=== PATIENT | male | born 1995 | race Asian ===

== ENCOUNTER 2017-02-11 17:02 | Emergency (ER) | payer BC ==
[~2017-02-11] VITALS: Ht 165.1 cm; Wt 64.0 kg
[2017-02-11 17:07] VITALS: BP 152/95
[2017-02-11 17:40] LABS: BASO # 0.1 x10^3/uL (0.0-0.2); BASO % 1 % (0-3); EOS % 2 % (0-3); HEMATOCRIT 47.2 % (39.0-53.0); HEMOGLOBIN 15.9 g/dL (13.0-17.5); LYMPH # 1.2 x10^3/uL (1.0-4.8); LYMPH % 12 % (24-48); MEAN CORPUSCULAR HEMOGLOBIN 30 pg (25-35); MEAN CORPUSCULAR HGB CONC 34 g/dL (31-37); MEAN CORPUSCULAR VOLUME 89 fL (79-100); MONO % 6 % (0-9); NEUT % 80 % (31-73); PLATELET COUNT 202 x10^3/uL (140-400); RED BLOOD COUNT 5.33 x10^6/uL (4.30-5.70); RED CELL DISTRIBUTION WIDTH 13.3 % (11.5-14.5); WHITE BLOOD COUNT 10.1 x10^3/uL (4.0-11.0)
[2017-02-11 17:43] LABS: BILIRUBIN,URINE NEGATIVE (NEG); GLUCOSE,URINE NEGATIVE (NEG); NITRITE,URINE NEGATIVE (NEG); PROTEIN,URINE NEGATIVE (NEG-TRACE); UROBILINOGEN,URINE 0.2 mg/dL (0.2 mg/dL)
[2017-02-11 17:47] LABS: BARBITURATES NEG (NEG); BENZODIAZEPINES NEG (NEG); CANNABINOIDS NEG (NEG); COCAINE NEG (NEG); METHADONE NEG (NEG); OPIATES NEG (NEG); PHENCYCLIDINE NEG (NEG)
--- NOTE | 2017-02-11 17:47 | PHYS DOC ---
Past Medical History Past Medical History: No Pertinent History Past Surgical History: No Surgical History Alcohol Use: None Additional Information: 'i used to drink a lot but i stopped' Drug Use: None Adult General Chief Complaint Chief Complaint: FEVER HPI HPI Patient is a 21 year old male who speaks [place] language who presents today with an hospital unit clerk, through the hospital unit clerk this states this patient has had a fever nonstop daily for the last 1 year. On inquiring how high the temperature was they state 8. At this point I tried to clarify 8 is not real temperature, I even asked is patient is warm, hospital unit clerk states may be. I asked if patient has been coughing or congestion, hospital unit clerk states no. Wardrobe Consultant states patient has also had dizziness for 1 year. He states this dizziness typically occurs in the morning when he gets up, hospital unit clerk states patient typically goes to bed ater work and then when he wakes up he feels his eyes are heavy and he is dizzy just for a few minutes. Patient himself states the dizziness occurs intermittently not all the time. Wardrobe Consultant is stating patient could and they want him evaluated. Wardrobe Consultant is requesting we do test to make sure patient doesn't . Wardrobe Consultant also state patient has had occasional headaches. They state they would like patient to be given medication for this headaches. Wardrobe Consultant is also stating patient has no primary care doctor has no follow-up. Wardrobe Consultant is doing most of the speaking leaning towards further testing. Patient's temperature is 97.8 in the ED. I clarified with him this is a normal temperature. They were very surprised, but they continued to insist patient must have further testing. Communication is quite difficult because the hospital unit clerk is doing a lot of talking for both parties. I doubt he is interpreting things the right away. Unfortunately the language this patient uses is almost impossible to find on the language line we have had trouble with this language before. Review of Systems Review of Systems Constitutional: fever Eyes: Denies change in visual acuity, redness, or eye pain [] HENT: Denies nasal congestion or sore throat [] Respiratory: Denies cough or shortness of breath [] Cardiovascular: No additional information not addressed in HPI [] GI: Denies abdominal pain, nausea, vomiting, bloody stools or diarrhea [] : Denies dysuria or hematuria [] Musculoskeletal: Denies back pain or joint pain [] Integument: Denies rash or skin lesions [] Neurologic: Headache and dizziness Endocrine: Denies polyuria or polydipsia [] Allergies Allergies Allergies Coded Allergies Type Severity Reaction Last Updated Verified No Known Drug Allergies 02/11/17 No Physical Exam Physical Exam Constitutional: Well developed, well nourished, no acute distress, non-toxic appearance. [] HENT: Normocephalic, atraumatic, bilateral external ears normal, oropharynx moist, no oral exudates, nose normal. [] Eyes: PERRLA, EOMI, conjunctiva normal, no discharge. [] Neck: Normal range of motion, no tenderness, supple, no stridor. [] Cardiovascular:Heart rate regular rhythm, no murmur [] Lungs & Thorax: Bilateral breath sounds clear to auscultation [] Abdomen: Bowel sounds normal, soft, no tenderness, no masses, no pulsatile masses. [] Skin: Warm, dry, no erythema, no rash. [] Back: No tenderness, no CVA tenderness. [] Extremities: No tenderness, no cyanosis, no clubbing, ROM intact, no edema. [] Neurologic: Alert and oriented X 3, normal motor function, normal sensory function, no focal deficits noted. cranial nerves II-XII intact Psychologic: Affect normal, judgement normal, mood normal. [] Current Patient Data Vital Signs Vital Signs Date Time Temp Pulse Resp B/P Pulse Ox O2 Delivery O2 Flow Rate FiO2 02/11/17 17:07 97.9 104 18 100 Room Air 97.9 Lab Values Laboratory Tests Test 02/11/17 17:32 02/11/17 17:33 White Blood Count 10.1x10^3/uL (4.0-11.0) Red Blood Count 5.33x10^6/uL (4.30-5.70) Hemoglobin 15.9g/dL (13.0-17.5) Hematocrit 47.2% (39.0-53.0) Mean Corpuscular Volume 89fL (79-100) Mean Corpuscular Hemoglobin 30pg (25-35) Mean Corpuscular Hemoglobin Concent 34g/dL (31-37) Red Cell Distribution Width 13.3% (11.5-14.5) Platelet Count 202x10^3/uL (140-400) Neutrophils (%) (Auto) 80% (31-73) H Lymphocytes (%) (Auto) 12% (24-48) L Monocytes (%) (Auto) 6% (0-9) Eosinophils (%) (Auto) 2% (0-3) Basophils (%) (Auto) 1% (0-3) Neutrophils # (Auto) 8.1x10^3uL (1.8-7.7) H Lymphocytes # (Auto) 1.2x10^3/uL (1.0-4.8) Monocytes # (Auto) 0.6x10^3/uL (0.0-1.1) Eosinophils # (Auto) 0.2x10^3/uL (0.0-0.7) Basophils # (Auto) 0.1x10^3/uL (0.0-0.2) Sodium Level 140mmol/L (136-145) Potassium Level 3.6mmol/L (3.5-5.1) Chloride Level 100mmol/L (98-107) Carbon Dioxide Level 29mmol/L (21-32) Anion Gap 11 (6-14) Blood Urea Nitrogen 13mg/dL (8-26) Creatinine 1.0mg/dL (0.7-1.3) Estimated GFR (Cockcroft-Gault) 94.3 Glucose Level 133mg/dL (70-99) H Calcium Level 9.4mg/dL (8.5-10.1) Ethyl Alcohol Level < 10mg/dL (0-10) Urine Collection Type Unknown Urine Color Yellow Urine Clarity Clear Urine pH 7.0 Urine Specific [place] 1.020 Urine Protein Negativemg/dL (NEG-TRACE) Urine Glucose (UA) Negativemg/dL (NEG) Urine Ketones (Stick) Negativemg/dL (NEG) Urine Blood Negative (NEG) Urine Nitrite Negative (NEG) Urine Bilirubin Negative (NEG) Urine Urobilinogen Dipstick 0.2mg/dL (0.2 mg/dL) Urine Leukocyte Esterase Negative (NEG) Urine RBC Rare/HPF (0-2) Urine WBC 1-4/HPF (0-4) Urine Bacteria 0/HPF (0-FEW) Urine Mucus Mod/LPF Urine Opiates Screen Neg (NEG) Urine Methadone Screen Neg (NEG) Urine Barbiturates Neg (NEG) Urine Phencyclidine Screen Neg (NEG) Urine Amphetamine/Methamphetamine Neg (NEG) Urine Benzodiazepines Screen Neg (NEG) Urine Cocaine Screen Neg (NEG) Urine Cannabinoids Screen Neg (NEG) Urine Ethyl Alcohol Neg (NEG) Laboratory Tests 02/11/17 17:32 Laboratory Tests 02/11/17 17:32 EKG EKG [] Radiology/Procedures Radiology/Procedures [] Course & Med Decision Making Course & Med Decision Making Pertinent Labs and Imaging studies reviewed. (See chart for details) Patient is in the ED to be evaluated for fever for 1 year, dizziness for one year, and headaches. This patient is not Persian speaking, we are using the hospital unit clerk he brought to the ED for Anthonychantal who is insistin we must do further testing on this patient. Patient is in no distress. He is afebrile in the ED. Please see history of present illness for further documentation. Labs are negative for anything acute. CT of the head is negative for any acute findings but noted for a sinus infection. Patient was discharged with Augmentin and prednisone. He is to follow-up with his own PCP which he doesn't have so we provided him a doctor for follow-up. Provided him return precautions. Discharged in stable condition. Dragon Disclaimer Dragon Disclaimer This electronic medical record was generated, in whole or in part, using a voice recognition dictation system. Departure Departure Impression: Primary Impression: Acute sinusitis Disposition: 01 HOME, SELF-CARE Condition: STABLE Patient Instructions: Sinusitis Additional Instructions: You were seen for sinus infection which can cause headache, dizziness, and fevers. Take the prescribed medicines especially antibiotics until completed. Follow-up with a doctor from the provided list. Come back to the ED at any point symptoms worsen. Scripts Amoxicillin/Potassium Clav (Augmentin 875-125 Tablet)1 Each Tablet1 Tab PO BID # 20 TAB Prov:[employer] WAITER[employer] 02/11/17 Prednisone 50 Mg Tablet1 Tab PO DAILY #5 TAB Prov:MUTUNGANILS WAITER/[employer] 02/11/17 Problem Qualifiers Primary Impression: Acute sinusitis Sinusitis location: unspecified location Recurrence: not specified as recurrent Qualified Code: J01.90 - Acute sinusitis, unspecified NILS WU WAITER/[employer]ESS [employer] Feb 11, 2017 17:47
[2017-02-11 17:50] LABS: CALCIUM 9.4 mg/dL (8.5-10.1); GFR 94.3; POTASSIUM 3.6 mmol/L (3.5-5.1)
[2017-02-11 17:50] LABS: BACTERIA,URINE 0 /HPF (0-FEW); RBC,URINE RARE /HPF (0-2)
[2017-02-11 17:56] LABS: ETHANOL, URINE NEG (NEG)
--- NOTE | 2017-02-11 17:59 | RAD ---
PROCEDURE CT head without contrast. HISTORY Dizziness today TECHNIQUE Helical CT imaging of the brain is performed without IV contrast. PQRS: One or more the following individualized dose reduction techniques were utilized for the study: 1. Automated exposure control. 2. Adjustment of the mA and/or kV according to patient size. 3. Use of iterative reconstruction technique. COMPARISON None. FINDINGS There is no midline shift or mass effect. No extra-axial fluid collection or intraparenchymal hemorrhage. Almaraz-white matter differentiation is preserved. Ventricles and sulci are normal for patient age. There is mucoperiosteal thickening involving both ethmoid air cells. The remainder paranasal sinuses and mastoid air cells are clear. The globes and orbits appear intact. No acute calvarial abnormality. IMPRESSION No acute intracranial abnormality. Bilateral ethmoid sinus disease is noted. Electronically signed by: Joana Patino MD (Feb 11, 2017 17:56:59)
[2017-02-11] MEDS ORDERED: PRED50TA PO (18:09)
[2017-02-11] MEDS ORDERED: AMOX1TAB61 PO (18:09)
== END 2017-02-11 18:30 | disposition home or self-care (01) ==
LOC: ER 17:02
DX: J01.90 Acute sinusitis, unspecified (principal); R42 Dizziness and giddiness
CPT/HCPCS: 36415; 70450; 80048; 80305; 80320; 81001; 82507; 85027; G0480; G0481; 99285-25

== ENCOUNTER 2017-05-23 15:10 | Emergency (ER) | payer BC ==
[~2017-05-23] VITALS: Ht 162.6 cm; Wt 46.7 kg
[~2017-05-23 15:10] MED LIST: AMOX1TAB61 PO; PRED50TA PO
[2017-05-23] MEDS ORDERED: IV NORMAL SALINE 1000ML BAG 1,000 ML IV SCH (15:31)
[2017-05-23] MEDS ORDERED: KETOROLAC TROMETHAMINE 30 MG/ML INJ. IV ONE (15:45)
[2017-05-23 15:52] LABS: BASO % 1 % (0-3); EOS % 10 % (0-3); HEMATOCRIT 43.2 % (39.0-53.0); HEMOGLOBIN 14.5 g/dL (13.0-17.5); LYMPH # 2.3 x10^3/uL (1.0-4.8); LYMPH % 33 % (24-48); MEAN CORPUSCULAR HEMOGLOBIN 30 pg (25-35); MEAN CORPUSCULAR HGB CONC 34 g/dL (31-37); MEAN CORPUSCULAR VOLUME 89 fL (79-100); MONO % 7 % (0-9); NEUT % 50 % (31-73); PLATELET COUNT 215 x10^3/uL (140-400); RED BLOOD COUNT 4.85 x10^6/uL (4.30-5.70); WHITE BLOOD COUNT 6.9 x10^3/uL (4.0-11.0)
[2017-05-23 16:01] LABS: CALCIUM 8.4 mg/dL (8.5-10.1); GFR 94.3; POTASSIUM 4.1 mmol/L (3.5-5.1)
[2017-05-23 16:06] LABS: BILIRUBIN,URINE NEGATIVE (NEG); GLUCOSE,URINE NEGATIVE (NEG); NITRITE,URINE NEGATIVE (NEG); PH,URINE 6.5; PROTEIN,URINE NEGATIVE (NEG-TRACE); UROBILINOGEN,URINE 0.2 mg/dL (0.2 mg/dL)
[2017-05-23 16:07] LABS: ALBUMIN 4.1 g/dL (3.4-5.0); ALBUMIN/GLOBULIN RATIO 1.1 (1.0-1.7); TOTAL BILIRUBIN 0.4 mg/dL (0.2-1.0); TOTAL PROTEIN 7.7 g/dL (6.4-8.2)
[2017-05-23 16:11] LABS: BARBITURATES NEG (NEG); BENZODIAZEPINES NEG (NEG); CANNABINOIDS NEG (NEG); COCAINE NEG (NEG); METHADONE NEG (NEG); OPIATES NEG (NEG); PHENCYCLIDINE NEG (NEG)
[2017-05-23 16:13] LABS: BACTERIA,URINE 0 /HPF (0-FEW); RBC,URINE 0 /HPF (0-2); WBC,URINE 0 /HPF (0-4)
[2017-05-23 16:53] VITALS: BP 146/86
--- NOTE | 2017-05-23 16:58 | PHYS DOC ---
Past Medical History Past Medical History: Other Additional Past Medical Histor: DIZZINESS, HEADACHES Past Surgical History: No Surgical History Alcohol Use: None Drug Use: None Adult General Chief Complaint Chief Complaint: DIZZY/LIGHT HEADED HPI HPI Patient is a 21 year old male brought to the ED by his brother with the complaint of dizziness and headache for "years and years". Brother states the patient was seen here a couple of months ago for the same complaint and he has not gotten better. He has seen a doctor in the clinic who gave him medicines but the medicines don't help. It's unclear whether anything actually got worse today that prompted his visit today. I reviewed his chart from 02/11/17. He had a CT of his head which was read as nothing acute. He was prescribed Augmentin and prednisone for possible sinus infection. The patient evidently was seen in April by a PCP and prescribed meclizine and Claritin which he has been taking and have not helped his symptoms. Patient worked last night from 6 PM to 3 AM. He did eat while he was working and he drank some juice, but since he got off work at 3 AM, he has not had anything to eat or drink. He slept for a while, then he woke up because the brothers child was sick and they came to the ER to be seen. Typically he would have eaten by now. It's been 12 hours since he got off work. When he woke up, he "thought he'd fall" because he was so dizzy. The dizziness is poorly described but does not necessarily sound vertiginous. Sounds more like lightheadedness. Denies vomiting or diarrhea. History is difficult because the patient does not speak [place]ian, the patient's brother is an interpreter deaf and also contributes to the history. Review of Systems Review of Systems Constitutional: Denies fever or chills [] Eyes: Denies change in visual acuity, redness, or eye pain [] HENT: Denies nasal congestion or sore throat [] Respiratory: Denies cough or shortness of breath [] Cardiovascular: Denies chest pain GI: Denies abdominal pain, vomiting, bloody stools or diarrhea . Has had some nausea. : Denies dysuria or hematuria [] Musculoskeletal: Denies back pain or joint pain [] Integument: Denies rash or skin lesions [] NEURO: As in history of present illness Current Medications Current Medications Current Medications Medications (Trade) Dose Ordered Sig/Cari Start Time Stop Time Status Last Admin Dose Admin Ketorolac Tromethamine (Toradol) 30 mg 1X ONCE 05/23/17 15:45 05/23/17 15:46 DC 05/23/17 15:50 30 MG Sodium Chloride 1,000 ml @ 1,000 mls/hr Q1H 05/23/17 15:31 05/23/17 16:30 DC 05/23/17 15:49 1,000 MLS/HR Allergies Allergies Allergies Coded Allergies Type Severity Reaction Last Updated Verified No Known Drug Allergies 02/11/17 No Physical Exam Physical Exam Constitutional: Well developed, well nourished, no acute distress, non-toxic appearance. Alert, ambulatory, mentating normally. HENT: Normocephalic, atraumatic, bilateral external ears normal, nose normal. [] Eyes: conjunctiva normal, no discharge. [] Neck: Normal range of motion, no stridor. [] Cardiovascular:Heart rate regular rhythm, no murmur , nontoxic cardiac Lungs & Thorax: Bilateral breath sounds clear to auscultation [] Skin: Warm, dry, no erythema, no rash. [] Extremities: No tenderness, no cyanosis, no clubbing, ROM intact, no edema. [] Neurologic: Alert and oriented X 3, normal motor function, normal sensory function, no focal deficits noted. [] Current Patient Data Vital Signs Vital Signs Date Time Temp Pulse Resp B/P (MAP) Pulse Ox O2 Delivery O2 Flow Rate FiO2 05/23/17 15:18 98.3 75 16 150/79 (102) 99 Room Air 98.3 Lab Values Laboratory Tests Test 05/23/17 15:45 05/23/17 15:55 White Blood Count 6.9 x10^3/uL (4.0-11.0) Red Blood Count 4.85 x10^6/uL (4.30-5.70) Hemoglobin 14.5 g/dL (13.0-17.5) Hematocrit 43.2 % (39.0-53.0) Mean Corpuscular Volume 89 fL (79-100) Mean Corpuscular Hemoglobin 30 pg (25-35) Mean Corpuscular Hemoglobin Concent 34 g/dL (31-37) Red Cell Distribution Width 13.0 % (11.5-14.5) Platelet Count 215 x10^3/uL (140-400) Neutrophils (%) (Auto) 50 % (31-73) Lymphocytes (%) (Auto) 33 % (24-48) Monocytes (%) (Auto) 7 % (0-9) Eosinophils (%) (Auto) 10 % (0-3) H Basophils (%) (Auto) 1 % (0-3) Neutrophils # (Auto) 3.4 x10^3uL (1.8-7.7) Lymphocytes # (Auto) 2.3 x10^3/uL (1.0-4.8) Monocytes # (Auto) 0.5 x10^3/uL (0.0-1.1) Eosinophils # (Auto) 0.7 x10^3/uL (0.0-0.7) Basophils # (Auto) 0.0 x10^3/uL (0.0-0.2) Sodium Level 142 mmol/L (136-145) Potassium Level 4.1 mmol/L (3.5-5.1) Chloride Level 106 mmol/L (98-107) Carbon Dioxide Level 34 mmol/L (21-32) H Anion Gap 2 (6-14) L Blood Urea Nitrogen 15 mg/dL (8-26) Creatinine 1.0 mg/dL (0.7-1.3) Estimated GFR (Cockcroft-Gault) 94.3 BUN/Creatinine Ratio 15 (6-20) Glucose Level 96 mg/dL (70-99) Calcium Level 8.4 mg/dL (8.5-10.1) L Total Bilirubin 0.4 mg/dL (0.2-1.0) Aspartate Amino Transferase (AST) 28 U/L (15-37) Alanine Aminotransferase (ALT) 35 U/L (16-63) Alkaline Phosphatase 61 U/L (46-116) Total Protein 7.7 g/dL (6.4-8.2) Albumin 4.1 g/dL (3.4-5.0) Albumin/Globulin Ratio 1.1 (1.0-1.7) Urine Opiates Screen Neg (NEG) Urine Methadone Screen Neg (NEG) Urine Barbiturates Neg (NEG) Urine Phencyclidine Screen Neg (NEG) Urine Amphetamine/Methamphetamine Neg (NEG) Urine Benzodiazepines Screen Neg (NEG) Urine Cocaine Screen Neg (NEG) Urine Cannabinoids Screen Neg (NEG) Urine Ethyl Alcohol Neg (NEG) Urine Collection Type Unknown Urine Color Yellow Urine Clarity Cloudy Urine pH 6.5 Urine Specific [place] 1.015 Urine Protein Negative mg/dL (NEG-TRACE) Urine Glucose (UA) Negative mg/dL (NEG) Urine Ketones (Stick) Negative mg/dL (NEG) Urine Blood Negative (NEG) Urine Nitrite Negative (NEG) Urine Bilirubin Negative (NEG) Urine Urobilinogen Dipstick 0.2 mg/dL (0.2 mg/dL) Urine Leukocyte Esterase Negative (NEG) Urine RBC 0 /HPF (0-2) Urine WBC 0 /HPF (0-4) Urine Bacteria 0 /HPF (0-FEW) Laboratory Tests 05/23/17 15:45 Laboratory Tests 05/23/17 15:45 EKG EKG [] Radiology/Procedures Radiology/Procedures [] Course & Med Decision Making Course & Med Decision Making Pertinent Labs and Imaging studies reviewed. (See chart for details) 21-year-old male who was worked up in January for similar symptoms, had a CT scan of his head, returns today with continued headaches and "dizziness" that sounds more like lightheadedness. He has had a trial of treatment for sinusitis and also a trial of meclizine and Claritin. Today, it sounds like he worked late into the night and has not had enough to eat or drink, which might be contributing to his symptoms. Labs today unremarkable. The patient was given a liter of fluids. I reassured the patient and his brother that labs are normal here today, and CT scan was normal in January. I reassured him that we are not finding a serious cause of his symptoms. I strongly urged him to try to get plenty of sleep, drink plenty of fluids, and eat regular, healthy meals, to see if this will help his symptoms. Follow-up with primary care physician. [] Dragon Disclaimer Dragon Disclaimer This electronic medical record was generated, in whole or in part, using a voice recognition dictation system. Departure Departure Impression: Primary Impression: Lightheadedness Additional Impression: Headache Disposition: HOME, SELF-CARE Condition: STABLE Referrals: UNKNOWN PCP NAME (PCP) Patient Instructions: General Headache Without Cause, [id number] Additional Instructions: Today, and on March 25 visit, we did not find any serious cause of your headache. Labs today and CT scan in January were normal. Sometimes people can have headaches and feel lightheaded when they have not had enough sleep, have not had enough to eat, or not had enough liquids to drink ( dehydrated). I recommend that for 2 weeks, you try to make sure you're getting plenty of sleep, at least 8 hours of sleep every day. Drink plenty of fluids while you're at work, after and before work. Eat regular meals, at least 3 good meals a day with protein and healthy carbs. You have had a trial of Claritin and meclizine and that does not seem to be helping. There is no need to continue those medications if they are not helping. When you have a headache, you may try [id number] ibuprofen, also called Motrin or Advil, or you might try [id number] Excedrin, or over-the- counter Tylenol. Do not mix these medications. These [id number] medicines are not to be used every day but can be used from time to time if you have a headache. Follow-up with primary care doctor if the above recommendations do not help. Problem Qualifiers CHOLO MARTINEZ MD May 23, 2017 16:58
== END 2017-05-23 17:08 | disposition home or self-care (01) ==
LOC: ER 15:10
DX: R42 Dizziness and giddiness (principal); R51 Headache
CPT/HCPCS: 36415; 80053; 80305; 80320; 81001; 85027; 96361; 96374; 99284; J1885; J7030; G0481

== ENCOUNTER 2019-07-17 06:09 | Emergency (ER) | payer BC ==
[~2019-07-17] VITALS: Ht 167.6 cm; Wt 68.0 kg
--- NOTE | 2019-07-17 06:29 | PHYS DOC ---
Past Medical History Past Medical History: Other Additional Past Medical Histor: DIZZINESS, HEADACHES Past Surgical History: No Surgical History Alcohol Use: Heavy Drug Use: None Adult General Chief Complaint Chief Complaint: DIZZY/LIGHT HEADED HPI HPI Patient is a 23 year old male who was brought here by his family for evaluation of dizziness. Patient was found on floor this morning by his family, admitted to drinking alcohol, drank 6 beers this morning after coming home from work. He complained of headache and neck pain. Patient felt dizzy when he stood up. Patient denies any chest pain, no abdominal pain. he denies any extremity pain, no back pain. Patient said he started having headache since yesterday after working out in the gym. Patient denied any medical history, not taking any medication. Review of Systems Review of Systems Constitutional: Denies fever or chills [] Eyes: Denies change in visual acuity, redness, or eye pain [] HENT: Denies nasal congestion or sore throat [] Respiratory: Denies cough or shortness of breath [] Cardiovascular: No additional information not addressed in HPI [] GI: Denies abdominal pain, nausea, vomiting, bloody stools or diarrhea [] : Denies dysuria or hematuria [] Musculoskeletal: Denies back pain or joint pain [] Integument: Denies rash or skin lesions [] Neurologic: POSITIVE FOR headache, DIZZINESS, NECK PAIN, No focal weakness or sensory changes [] Endocrine: Denies polyuria or polydipsia [] All other systems were reviewed and found to be within normal limits, except as documented in this note. Current Medications Current Medications Current Medications Medications (Trade) Dose Ordered Sig/[facility] Start Time Stop Time Status Last Admin Dose Admin Metoprolol Tartrate (Lopressor Vial) 5 mg STK-MED ONCE 07/17/19 08:06 07/17/19 08:06 DC Morphine Sulfate (Morphine Sulfate) 2 mg 1X ONCE 07/17/19 08:15 07/17/19 08:16 07/17/19 07:49 2 MG Ondansetron HCl (Zofran) 4 mg 1X ONCE 07/17/19 08:15 07/17/19 08:16 07/17/19 07:49 4 MG Sodium Chloride 1,000 ml @ 1,000 mls/hr 1X ONCE 07/17/19 06:30 07/17/19 07:29 DC 07/17/19 06:40 1,000 MLS/HR Allergies Allergies Allergies Coded Allergies Type Severity Reaction Last Updated Verified No Known Drug Allergies 02/11/17 No Physical Exam Physical Exam Constitutional: Well developed, well nourished, no acute distress, appeared sleepy, HEAVY ALCOHOL SMELLED ON HIS BREATH. HENT: Normocephalic, atraumatic, bilateral external ears normal, oropharynx moist, no oral exudates, nose normal. [] Eyes: PERRLA, EOMI, conjunctiva normal, no discharge. [] Neck: Normal range of motion, no tenderness, supple, no stridor. [] Cardiovascular:Heart rate regular rhythm, no murmur [] Lungs & Thorax: Bilateral breath sounds clear to auscultation [] Abdomen: Bowel sounds normal, soft, no tenderness, no masses, no pulsatile masses. [] Skin: Warm, dry, no erythema, no rash. [] Back: No tenderness, no CVA tenderness. [] Extremities: No tenderness, no cyanosis, no clubbing, ROM intact, no edema. [] Neurologic: Alert and oriented X 3, normal motor function, normal sensory function, no focal deficits noted. [] Psychologic: Affect normal, judgement normal, mood normal. [] Current Patient Data Vital Signs Vital Signs Date Time Temp Pulse Resp B/P (MAP) Pulse Ox O2 Delivery O2 Flow Rate FiO2 07/17/19 08:07 75 150/74 07/17/19 07:49 18 99 Room Air 07/17/19 06:10 98.2 98.2 Lab Values Laboratory Tests Test 07/17/19 06:30 07/17/19 07:30 White Blood Count 11.9 x10^3/uL (4.0-11.0) H Red Blood Count 5.01 x10^6/uL (4.30-5.70) Hemoglobin 15.6 g/dL (13.0-17.5) Hematocrit 45.5 % (39.0-53.0) Mean Corpuscular Volume 91 fL (79-100) Mean Corpuscular Hemoglobin 31 pg (25-35) Mean Corpuscular Hemoglobin Concent 34 g/dL (31-37) Red Cell Distribution Width 13.0 % (11.5-14.5) Platelet Count 288 x10^3/uL (140-400) Neutrophils (%) (Auto) 69 % (31-73) Lymphocytes (%) (Auto) 22 % (24-48) L Monocytes (%) (Auto) 5 % (0-9) Eosinophils (%) (Auto) 4 % (0-3) H Basophils (%) (Auto) 1 % (0-3) Neutrophils # (Auto) 8.2 x10^3/uL (1.8-7.7) H Lymphocytes # (Auto) 2.6 x10^3/uL (1.0-4.8) Monocytes # (Auto) 0.6 x10^3/uL (0.0-1.1) Eosinophils # (Auto) 0.5 x10^3/uL (0.0-0.7) Basophils # (Auto) 0.1 x10^3/uL (0.0-0.2) Sodium Level 140 mmol/L (136-145) Potassium Level 3.5 mmol/L (3.5-5.1) Chloride Level 100 mmol/L (98-107) Carbon Dioxide Level 26 mmol/L (21-32) Anion Gap 14 (6-14) Blood Urea Nitrogen 9 mg/dL (8-26) Creatinine 1.1 mg/dL (0.7-1.3) Estimated GFR (Cockcroft-Gault) 83.0 BUN/Creatinine Ratio 8 (6-20) Glucose Level 157 mg/dL (70-99) H Calcium Level 8.6 mg/dL (8.5-10.1) Magnesium Level 1.8 mg/dL (1.8-2.4) Total Bilirubin 0.3 mg/dL (0.2-1.0) Aspartate Amino Transferase (AST) 104 U/L (15-37) H Alanine Aminotransferase (ALT) 160 U/L (16-63) H Alkaline Phosphatase 68 U/L (46-116) Troponin I Quantitative 0.031 ng/mL (0.000-0.055) Total Protein 7.9 g/dL (6.4-8.2) Albumin 4.2 g/dL (3.4-5.0) Albumin/Globulin Ratio 1.1 (1.0-1.7) Lipase 68 U/L (73-393) L Salicylates Level < 2.8 mg/dL (2.8-20.0) L Salicylate Last Dose Date Unknown Salicylate Last Dose Time Unknown Acetaminophen Level < 2 mcg/ml (10-30) L Acetaminophen Last Dose Date Unknown Acetaminophen Last Dose Time Unknown Ethyl Alcohol Level 114 mg/dL (0-10) H Urine Opiates Screen Neg (NEG) Urine Methadone Screen Neg (NEG) Urine Barbiturates Neg (NEG) Urine Phencyclidine Screen Neg (NEG) Urine Amphetamine/Methamphetamine Neg (NEG) Urine Benzodiazepines Screen Neg (NEG) Urine Cocaine Screen Neg (NEG) Urine Cannabinoids Screen Neg (NEG) Urine Ethyl Alcohol Pos (NEG) Laboratory Tests 07/17/19 06:30 Laboratory Tests 07/17/19 06:30 EKG EKG EKG : RATE OF 74 BPM, NSR. [] Radiology/Procedures Radiology/Procedures [][facility] [address] [place] [address] IMAGING REPORT Signed PATIENT: FAROOQ ONEAL ACCOUNT: [id number] : 1995 LOCATION: ER AGE: 23 SEX: M EXAM STATUS: REG ER ORD. PHYSICIAN: DIANNE OSEGUERA DO REASON: intoxicated, fell, neck pain PROCEDURE: CT HEAD AND CERVICAL SPINE WO CT HEAD AND CERVICAL SPINE WO History: Intoxicated. Trauma. Neck pain. Head pain. Comparison: February 11, 2017 Technique: Noncontrast CT imaging was performed of the head and cervical spine. Coronal and sagittal reconstructions were performed. Exposure: One or more of the following individualized dose reduction techniques were utilized for this examination: 1. Automated exposure control 2. Adjustment of the mA and/or kV according to patient size 3. Use of iterative reconstruction technique. Findings: Head CT: Diffuse subarachnoid hemorrhage centered within the basilar cisterns, concerning for aneurysm rupture. Small intraventricular hemorrhage. Mildly dilated lateral ventricles compared to prior, concerning for developing hydrocephalus. Imaged orbits are unremarkable. Right maxillary sinus fluid level. Partial opacification of numerous ethmoid air cells. Additional scattered paranasal sinus mucosal thickening. Mastoid air cells are clear. No acute calvarial fracture. Cervical spine CT: Normal vertebral body height and alignment. No fracture. Soft tissues unremarkable. Impression: 1. Diffuse subarachnoid hemorrhage centered within the basilar cisterns with small intraventricular hemorrhage, concerning for aneurysm rupture. CTA can better evaluate. 2. Mildly dilated lateral ventricles, concerning for acute hydrocephalus. 3. No acute fracture or subluxation of the cervical spine. 4. Paranasal sinus disease, can be seen with acute sinusitis in the appropriate clinical setting. FOR INTERNAL CODING PURPOSES Critical result: Findings discussed with DIANNE OSEGUERA at 07/17/2019 7:35 AM. RESULT CODE: (C) Electronically signed by: Booker Jackson DO (07/17/2019 7:41 AM) [facility] DICTATED and SIGNED BY: BOOKER JACKSON DO DATE: 07/17/19 0741 Course & Med Decision Making Course & Med Decision Making Pertinent Labs and Imaging studies reviewed. (See chart for details) Discussed with neurosurgery'S DIE MAINTENANCE TECHNICIAN, recommended to transfer patient to due to atraumatic subarrhacnoid hemorrhage most likely due to Aneurysm. Contacted TRANSFER LINE AT 735 AM to initiate transfer process. Dr. RADHA BARRAZA accepted patient for transfer to [facility]. Dragon Disclaimer Dragon Disclaimer This electronic medical record was generated, in whole or in part, using a voice recognition dictation system. Departure Departure Impression: Primary Impression: Subarachnoid hemorrhage Additional Impression: Alcohol intoxication Disposition: 02 TRANSFER [facility] (transfer to [facility]) Condition: STABLE Referrals: UNKNOWN PCP NAME (PCP) Problem Qualifiers DIANNE OSEGUERA DO Jul 17, 2019 06:29
[2019-07-17] MEDS ORDERED: IV NORMAL SALINE 1000ML BAG 1,000 ML IV ONE (06:30)
[2019-07-17 06:50] LABS: CALCIUM 8.6 mg/dL (8.5-10.1); CREATININE 1.1 mg/dL (0.7-1.3); POTASSIUM 3.5 mmol/L (3.5-5.1)
[2019-07-17 06:55] LABS: ACETAMIN < 2 mcg/ml (10-30); ETHANOL 114 mg/dL (0-10); SALIC < 2.8 mg/dL (2.8-20.0)
[2019-07-17 06:56] LABS: ALBUMIN 4.2 g/dL (3.4-5.0); ALBUMIN/GLOBULIN RATIO 1.1 (1.0-1.7); MAGNESIUM 1.8 mg/dL (1.8-2.4); TOTAL BILIRUBIN 0.3 mg/dL (0.2-1.0); TOTAL PROTEIN 7.9 g/dL (6.4-8.2)
--- NOTE | 2019-07-17 07:16 | EKG ---
[facility] [address] [place] [address] Test Date: 2019-07-17 Test Time: 06:17:57 Pat Name: FAROOQ ONEAL Department: Room: Gender: M Economics Instructor: : 1995 Requested By: DIANNE OSEGUERA Order Number: [id number] Reading MD: Mike Rush MD Measurements Intervals [place] Rate: 74 P: 56 WY: 192 QRS: 42 QRSD: 96 T: 48 QT: 388 QTc: 436 Interpretive Statements SINUS RHYTHM Electronically Signed On 07-17-2019 8:16:32 CDT by Mike Rush MD
[2019-07-17 07:32] LABS: BASO # 0.1 x10^3/uL (0.0-0.2); BASO % 1 % (0-3); EOS # 0.5 x10^3/uL (0.0-0.7); EOS % 4 % (0-3); HEMATOCRIT 45.5 % (39.0-53.0); HEMOGLOBIN 15.6 g/dL (13.0-17.5); LYMPH # 2.6 x10^3/uL (1.0-4.8); LYMPH % 22 % (24-48); MEAN CORPUSCULAR HEMOGLOBIN 31 pg (25-35); MEAN CORPUSCULAR HGB CONC 34 g/dL (31-37); MEAN CORPUSCULAR VOLUME 91 fL (79-100); MONO # 0.6 x10^3/uL (0.0-1.1); MONO % 5 % (0-9); NEUT # 8.2 x10^3/uL (1.8-7.7); NEUT % 69 % (31-73); PLATELET COUNT 288 x10^3/uL (140-400); RED BLOOD COUNT 5.01 x10^6/uL (4.30-5.70); WHITE BLOOD COUNT 11.9 x10^3/uL (4.0-11.0)
--- NOTE | 2019-07-17 07:44 | RAD ---
CT HEAD AND CERVICAL SPINE WO History: Intoxicated. Trauma. Neck pain. Head pain. Comparison: February 11, 2017 Technique: Noncontrast CT imaging was performed of the head and cervical spine. Coronal and sagittal reconstructions were performed. Exposure: One or more of the following individualized dose reduction techniques were utilized for this examination: 1. Automated exposure control 2. Adjustment of the mA and/or kV according to patient size 3. Use of iterative reconstruction technique. Findings: Head CT: Diffuse subarachnoid hemorrhage centered within the basilar cisterns, concerning for aneurysm rupture. Small intraventricular hemorrhage. Mildly dilated lateral ventricles compared to prior, concerning for developing hydrocephalus. Imaged orbits are unremarkable. Right maxillary sinus fluid level. Partial opacification of numerous ethmoid air cells. Additional scattered paranasal sinus mucosal thickening. Mastoid air cells are clear. No acute calvarial fracture. Cervical spine CT: Normal vertebral body height and alignment. No fracture. Soft tissues unremarkable. Impression: 1. Diffuse subarachnoid hemorrhage centered within the basilar cisterns with small intraventricular hemorrhage, concerning for aneurysm rupture. CTA can better evaluate. 2. Mildly dilated lateral ventricles, concerning for acute hydrocephalus. 3. No acute fracture or subluxation of the cervical spine. 4. Paranasal sinus disease, can be seen with acute sinusitis in the appropriate clinical setting. FOR INTERNAL CODING PURPOSES Critical result: Findings discussed with DIANNE OSEGUERA at 07/17/2019 7:35 AM. RESULT CODE: (C) Electronically signed by: Booker Jackson DO (07/17/2019 7:41 AM) [facility]
[2019-07-17 07:48] LABS: BILIRUBIN,URINE NEGATIVE (NEG); CLARITY,URINE CLEAR; COLOR,URINE YELLOW; NITRITE,URINE NEGATIVE (NEG); PROTEIN,URINE 100 mg/dL (NEG-TRACE); UROBILINOGEN,URINE 0.2 mg/dL (0.2 mg/dL)
[2019-07-17 07:58] LABS: BARBITURATES NEG (NEG); BENZODIAZEPINES NEG (NEG); CANNABINOIDS NEG (NEG); COCAINE NEG (NEG); METHADONE NEG (NEG); OPIATES NEG (NEG); PHENCYCLIDINE NEG (NEG)
[2019-07-17 08:01] LABS: AMPHETAMINE/METHAMPHETAMINE NEG (NEG)
[2019-07-17 08:03] LABS: PROTHROMBIN TIME PATIENT 13.6 SEC (11.7-14.0)
[2019-07-17] MEDS ORDERED: METOPROLOL TARTRATE 5 MG/5 ML VIAL. IVP ONE ×2 (08:06→08:15)
[2019-07-17 08:08] LABS: BACTERIA,URINE 0 /HPF (0-FEW); RBC,URINE 0 /HPF (0-2); SQUAMOUS EPITHELIAL CELL,UR OCC /LPF; WBC,URINE OCC /HPF (0-4)
[2019-07-17 08:15] VITALS: BP 133/73
[2019-07-17] MEDS ORDERED: ONDANSETRON PF 4 MG/2 ML VIAL. IV ONE (08:15)
[2019-07-17] MEDS ORDERED: MORPHINE SULFATE 2 MG/ML VIAL. IV ONE (08:15)
== END 2019-07-17 09:00 | disposition short-term general hospital (02) ==
LOC: ER 06:09
DX: S06.6X9A Traumatic subarachnoid hemorrhage with loss of consciousness of unspecified duration, initial encounter (principal); F10.229 Alcohol dependence with intoxication, unspecified; Y90.5 Blood alcohol level of 100-119 mg/100 ml; R42 Dizziness and giddiness; R51 Headache; M54.2 Cervicalgia; W18.39XA Other fall on same level, initial encounter; Y93.89 Activity, other specified; Y92.89 Other specified places as the place of occurrence of the external cause; Y99.8 Other external cause status
CPT/HCPCS: 36415; 70450; 72125; 80053; 80307; 80329; 81001; 83690; 83735; 84484; 85025; 85610; 85730; 93005; 96361; 96374; 96375; 99285; G0480; J2270; J2405; J3490; J7030